=== PATIENT | female | born 1975 | race Caucasian/White ===

== ENCOUNTER 2018-05-26 13:58 | Inpatient (IN) | payer SELFPAY ==
[2018-05-26 14:38] LABS: Urine Appearance Clear; Urine Blood Negative (Negative); Urine Color Yellow; Urine Ketones Negative (Negative); Urine Protein Negative (Negative); Urine Specific Gravity 1.013 (1.010-1.030); Urine Urobilinogen Negative (Negative)
[2018-05-26 14:40] LABS: ABS Basophils 0 10^3/ul (0-0.2); ABS Eosinophils 0.2 10^3/ul (0-0.6); ABS Lymphocytes 2.7 10^3/ul (1.0-4.8); ABS Monocytes 0.4 10^3/ul (0-0.8); ABS Neutrophils 4.7 10^3/ul (1.5-7.7); ABS Nucleated RBC 0 10^3/ul; Eosinophil % 2.1 % (0-6); Hematocrit 42 % (35-47); Hemoglobin 14.6 g/dl (12.0-16.0); Lymphocyte % 33.7 % (25-47); Mean Corpuscular HGB Conc 35 g/dl (31-36); Mean Corpuscular Hemoglobin 33 pg (27-31); Mean Corpuscular Volume 96 fL (80-97); Mean Platelet Volume 8.5 um3 (7.4-10.4); Nucleated Red Blood Cells % 0.1; Platelet Count 277 10^3/ul (150-450); Red Blood Count 4.37 10^6/ul (4.00-5.40); Red Cell Distribution Width 13 % (10.5-15)
[2018-05-26 15:00] LABS: EGFR Non-African American 90.9 (>60)
[2018-05-26] MEDS ORDERED: oxyCODONE SR TAB(*) 15 MG TAB.SR PO ONE ×2 (17:01→22:54)
[2018-05-26] MEDS ORDERED: Carisoprodol TAB* 350 MG PO ONE ×2 (17:01→22:53)
[2018-05-26] MEDS ORDERED: Nicotine Inhaler* 10 MG AMP INH ONE (17:03)
[2018-05-26] MEDS ORDERED: Mouth Piece, Nicotine* 1 EACH CARTRIDGE INH PRN (17:03)
[2018-05-26] MEDS ORDERED: Morphine TAB (NF) 15 MG TAB PO ONE (17:05)
[2018-05-26] MEDS ORDERED: Mouth Piece, Nicotine* 1 EACH CARTRIDGE ONE (17:08)
[2018-05-26] MEDS ORDERED: Morphine ORAL.SOLN 10 mg* 2 MG/ML UDC 5 ml PO ONE (18:00)
[2018-05-26] MEDS ORDERED: clonazePAM TAB(*) 1 MG PO ONE (21:00)
--- NOTE | 2018-05-26 21:24 | ED ---
Terry Hunter Angela, scribed for Derrick Vidal MD on 05/26/18 at 1425 . Psychiatric Complaint - HPI Summary HPI Summary: This pt is a 42 y/o female, accompanied by friend, presenting to [facility] c/o increased depression and anxiety for the past 1 month. Pt reports she has not been feeling herself at all and has "not been functioning." She states that 1 month ago she left work and never went back again. Pt was a nurse at [employer]. She states she stays in her bed and watches Netflix. Pt notes she does not sleep , eat, or shower. Denies chest pain, SOB, abd pain. She notes she is currently anxious. Per friend, "she has passive suicidal ideations." Pt denies SI or HI. Pt did not reach out sooner for help because she was embarrassed. She states "I don't know what is wrong with me." Pt notes she has never had a problem like this before. LMP: 2 weeks ago. Pt admits to tobacco use but denies alcohol use. PMHx includes fibromyalgia, herniated disc, depression and anxiety (for years). She started Neurontin 3 months ago. Pt is currently on Klonopin. - History Of Current Complaint Chief Complaint: EDMentalHealth Hx Obtained From: Patient Hx Last Menstrual Period: 03/05/15 Onset/Duration: Lasting Weeks, Still Present Timing: Weeks Severity Currently: Severe Character: Depressed, Anxious Aggravating Factor(s): Nothing Alleviating Factor(s): Nothing Associated Signs And Symptoms: Positive: Sleep Disturbance, Appetite Change, Social Withdrawal, Social Isolation Has Suicidal: Reports: Demonstrates Gesture - per friend. Denies: Thoughts, With A Plan Has Homicidal: Denies: Thoughts, With A Plan - Allergies/Home Medications Allergies/Adverse Reactions: Allergies Allergy/AdvReac Type Severity Reaction Status Date / Time Sulfa (Sulfonamide AdvReac GI Upset Verified 05/26/18 15:38 Antibiotics) tramadol AdvReac GI Upset Verified 05/26/18 15:38 Home Medications: Home Medications Amphetamine MIXED SALT TAB* [Adderall TAB*] 10 mg PO DAILY PRN 05/26/18 [ History Confirmed 05/26/18] Carisoprodol TAB* [Soma TAB*] 350 mg PO QID 05/26/18 [History Confirmed ] Cholecalciferol TAB* [Vitamin D TAB*] 1,000 unit PO DAILY 05/26/18 [History Confirmed 05/26/18] FLUoxetine CAP* [PROzac CAP*] 20 mg PO DAILY 05/26/18 [History Confirmed ] Gabapentin CAP(*) [Neurontin 300 CAP(*)] 300 mg PO BID 05/26/18 [History Confirmed 05/26/18] Morphine Sulfate [Morphine Sulfate ER] 15 mg PO BID 05/26/18 [History Confirmed 05/26/18] Oxycodone HCl [Oxycodone HCl ER 30 mg] 30 mg PO TID 05/26/18 [History Confirmed 05/26/18] Sertraline* [Zoloft*] 100 mg PO DAILY 05/26/18 [History Confirmed 05/26/18] clonazePAM TAB(*) [KlonoPIN TAB(*)] 1 mg PO DAILY 05/26/18 [History Confirmed ] PMH/Surg Hx/FS Hx/Imm Hx Endocrine/Hematology History: Denies: Hx Diabetes, Hx Thyroid Disease, Hx Anemia Cardiovascular History: Reports: Other Cardiovascular Problems/Disorders - tachycardic at night, with sweats Denies: Hx Hypertension, Hx Pacemaker/ICD Respiratory History: Denies: Hx Asthma, Hx Chronic Obstructive Pulmonary Disease (COPD) GI History: Reports: Hx Diverticulosis, Hx Gall Bladder Disease, Other GI Disorders - N/V/DIARHEA Denies: Hx Cirrhosis, Hx Jaundice, Hx Ulcer History: Reports: Hx Kidney Infection, Hx Kidney Stones - LEFT SIDED, Other Problems/Disorders - UTI ? Denies: Hx Dialysis Musculoskeletal History: Reports: Hx Arthritis - BACK, Hx Back Problems, Hx Fibromyalgia, Other Musculoskeletal History - DDD in back Sensory History: Denies: Hx Contacts or Glasses, Hx Hearing Aid Opthamlomology History: Denies: Hx Contacts or Glasses Neurological History: Reports: Hx Migraine - 1 PER WEEK- WITH N/V - TREATS WITH TYLENOL Denies: Hx Headaches, Other Neuro Impairments/Disorders Psychiatric History: Reports: Hx Anxiety, Hx Depression, Hx Panic Disorder Denies: Hx Suicide Attempt, Other Psychiatric Issues/Disorders - Surgical History Surgery Procedure, Year, and Place: TUBES IN EARS 1976,SPIDER BITE L LEG 2002; lithotripsy 2013; tonsils and adenoids Hx Anesthesia Reactions: No - Immunization History Date of Tetanus Vaccine: UP TO DATE Date of Influenza Vaccine: NONE Infectious Disease History: Yes Infectious Disease History: Reports: Hx Clostridium Difficile, Hx of Known/ Suspected MRSA Denies: Hx Hepatitis, Hx Human Immunodeficiency Virus (HIV), History Other Infectious Disease, Traveled Outside the [place] in Last 30 Days - Family History Known Family History: Positive: Other - brain aneurysm Family History: FHx of mental health. No FHx of suicides. - Social History Alcohol Use: Rare Substance Use Type: Reports: None Substance Use Comment - Amount & Last Used: morphine 30mg bid, oxycodone 30mg qid. Smoking Status (MU): Light Every Day Tobacco Smoker Type: Cigarettes Amount Used/How Often: 1 ppd Length of Time of Smoking/Using Tobacco: 27 Have You Smoked in the Last Year: Yes Review of Systems Negative: Fever, Chills ENT: Negative Negative: Chest Pain Negative: Shortness Of Breath Negative: Abdominal Pain Psychological: Other - SI per friend Positive: Anxious, Depressed All Other Systems Reviewed And Are Negative: Yes Physical Exam - Summary Physical Exam Summary: Appearance: Well appearing, no pain distress Skin: warm, dry, reflects adequate perfusion Head/face: normal Eyes: EOMI, [place] ENT: normal Neck: supple, non-tender Respiratory: CTA, breath sounds present Cardiovascular: RRR, pulses symmetrical Abdomen: non-tender, soft Bowel: present Musculoskeletal: normal, strength/ROM intact Neuro: normal, sensory motor intact, A&Ox3 Triage Information Reviewed: Yes Vital Signs On Initial Exam: Initial Vitals Temp Pulse Resp BP Pulse Ox 98.3 F 92 18 149/84 97 05/26/18 14:00 05/26/18 14:00 05/26/18 14:00 05/26/18 14:00 05/26/18 14:00 Vital Signs Reviewed: Yes Diagnostics - Vital Signs Vital Signs Temp Pulse Resp BP Pulse Ox 05/26/18 14:00 98.3 F 92 18 149/84 97 - Laboratory Lab Results: Lab Results 05/26/18 05/26/18 05/26/18 Range/Units 14:23 14:23 14:29 WBC 8.0 (3.5-10.8) 10^3/ul RBC 4.37 (4.00-5.40) 10^6/ul Hgb 14.6 (12.0-16.0) g/dl Hct 42 (35-47) % MCV 96 (80-97) fL MCH 33 H (27-31) pg MCHC 35 (31-36) g/dl RDW 13 (10.5-15) % Plt Count 277 (150-450) 10^3/ul MPV 8.5 (7.4-10.4) um3 Neut % (Auto) 58.8 (38-83) % Lymph % (Auto) 33.7 (25-47) % [place] % (Auto) 5.0 (0-7) % Eos % (Auto) 2.1 (0-6) % Baso % (Auto) 0.4 (0-2) % Absolute Neuts (auto) 4.7 (1.5-7.7) 10^3/ul Absolute Lymphs (auto) 2.7 (1.0-4.8) 10^3/ul Absolute Monos (auto) 0.4 (0-0.8) 10^3/ul Absolute Eos (auto) 0.2 (0-0.6) 10^3/ul Absolute Basos (auto) 0 (0-0.2) 10^3/ul Absolute Nucleated RBC 0 10^3/ul Nucleated RBC % 0.1 Sodium (135-145) mmol/L Potassium (3.5-5.0) mmol/L Chloride (101-111) mmol/L Carbon Dioxide (22-32) mmol/L Anion Gap (2-11) mmol/L BUN (6-24) mg/dL Creatinine (0.51-0.95) mg/dL Est GFR ( Amer) (>60) Est GFR (Non-Af Amer) (>60) BUN/Creatinine Ratio (8-20) Glucose (70-100) mg/dL Calcium (8.6-10.3) mg/dL Total Bilirubin (0.2-1.0) mg/dL AST (13-39) U/L ALT (7-52) U/L Alkaline Phosphatase (34-104) U/L Total Creatine Kinase (10-223) U/L Total Protein (6.4-8.9) g/dL Albumin (3.2-5.2) g/dL Globulin (2-4) g/dL Albumin/Globulin Ratio (1-3) TSH (0.34-5.60) mcIU/mL Beta HCG, Quant mIU/mL Urine Color Yellow Urine Appearance Clear Urine pH 6.0 (5-9) Ur Specific [place] 1.013 (1.010-1.030) Urine Protein Negative (Negative) Urine Ketones Negative (Negative) Urine Blood Negative (Negative) Urine Nitrate Negative (Negative) Urine Bilirubin Negative (Negative) Urine Urobilinogen Negative (Negative) Ur Leukocyte Esterase Negative (Negative) Urine Glucose Negative (Negative) Salicylates (<30) mg/dL Urine Opiates Screen Presumptive positive A (None Detect) Acetaminophen mcg/mL Ur Barbiturates Screen None detected (None Detect) Ur Phencyclidine Scrn None detected (None Detect) Ur Amphetamines Screen None detected (None Detect) U Benzodiazepines Scrn None detected (None Detect) Urine Cocaine Screen None detected (None Detect) U Cannabinoids Screen None detected (None Detect) Serum Alcohol (<10) mg/dL 05/26/18 Range/Units 14:29 WBC (3.5-10.8) 10^3/ul RBC (4.00-5.40) 10^6/ul Hgb (12.0-16.0) g/dl Hct (35-47) % MCV (80-97) fL MCH (27-31) pg MCHC (31-36) g/dl RDW (10.5-15) % Plt Count (150-450) 10^3/ul MPV (7.4-10.4) um3 Neut % (Auto) (38-83) % Lymph % (Auto) (25-47) % [place] % (Auto) (0-7) % Eos % (Auto) (0-6) % Baso % (Auto) (0-2) % Absolute Neuts (auto) (1.5-7.7) 10^3/ul Absolute Lymphs (auto) (1.0-4.8) 10^3/ul Absolute Monos (auto) (0-0.8) 10^3/ul Absolute Eos (auto) (0-0.6) 10^3/ul Absolute Basos (auto) (0-0.2) 10^3/ul Absolute Nucleated RBC 10^3/ul Nucleated RBC % Sodium 138 (135-145) mmol/L Potassium 3.7 (3.5-5.0) mmol/L Chloride 105 (101-111) mmol/L Carbon Dioxide 24 (22-32) mmol/L Anion Gap 9 (2-11) mmol/L BUN 10 (6-24) mg/dL Creatinine 0.70 (0.51-0.95) mg/dL Est GFR ( Amer) 110.0 (>60) Est GFR (Non-Af Amer) 90.9 (>60) BUN/Creatinine Ratio 14.3 (8-20) Glucose 94 (70-100) mg/dL Calcium 9.2 (8.6-10.3) mg/dL Total Bilirubin 0.30 (0.2-1.0) mg/dL AST 13 (13-39) U/L ALT 13 (7-52) U/L Alkaline Phosphatase 51 (34-104) U/L Total Creatine Kinase 33 (10-223) U/L Total Protein 7.1 (6.4-8.9) g/dL Albumin 4.3 (3.2-5.2) g/dL Globulin 2.8 (2-4) g/dL Albumin/Globulin Ratio 1.5 (1-3) TSH 1.81 (0.34-5.60) mcIU/mL Beta HCG, Quant < 0.60 mIU/mL Urine Color Urine Appearance Urine pH (5-9) Ur Specific [place] (1.010-1.030) Urine Protein (Negative) Urine Ketones (Negative) Urine Blood (Negative) Urine Nitrate (Negative) Urine Bilirubin (Negative) Urine Urobilinogen (Negative) Ur Leukocyte Esterase (Negative) Urine Glucose (Negative) Salicylates < 2.50 (<30) mg/dL Urine Opiates Screen (None Detect) Acetaminophen < 15 mcg/mL Ur Barbiturates Screen (None Detect) Ur Phencyclidine Scrn (None Detect) Ur Amphetamines Screen (None Detect) U Benzodiazepines Scrn (None Detect) Urine Cocaine Screen (None Detect) U Cannabinoids Screen (None Detect) Serum Alcohol < 10 (<10) mg/dL Result Diagrams: 05/26/18 14:29 05/26/18 14:29 Lab Statement: Any lab studies that have been ordered have been reviewed, and results considered in the medical decision making process. - EKG 14:24 Cardiac Rate: NL - at 74 bpm EKG Rhythm: Sinus Rhythm ST Segment: Normal EKG Interpretation: Normal axis and intervals. Course/Dx - Course Course Of Treatment: Patient medically cleared following laboratories, EKG. She was taken to the flex unit and evaluated by the crisis mental health evaluators. She'll be signed out to the oncoming physician pending disposition per mental health. - Differential Dx/Clinical Impression Differential Diagnosis/HQI/PQRI: Positive: Anxiety Provider Diagnosis: Depression, fibromyalgia Discharge - Sign-Out/Discharge Documenting (check all that apply): Sign-Out Patient Signing out patient TO: Balaji White - pending dispo, awaiting MHE. - Discharge Plan Condition: Stable Referrals: Alondra Araiza MD [Primary Care Provider] - - Billing Disposition and Condition Condition: STABLE The documentation as recorded by the Terry delgado Angela accurately reflects the service I personally performed and the decisions made by , Derrick Vidal MD.
[2018-05-26] MEDS ORDERED: oxyCODONE SR TAB(*) 10 MG TAB.SR PO ONE (23:00)
[2018-05-27] MEDS: Nicotine Inhaler* 10 MG AMP INH PRN ×3 (00:18→21:30)
--- NOTE | 2018-05-27 06:05 | ED ---
IRcihie Tiffany, scribed for Balaji White MD on 05/27/18 at 0106 . Progress - Progress Note Progress Note: This patient is signed out from Dr. Vidal, awaiting MHE, pending dispo. - Consult/PCP Time Called: 00:00 Course/Dx - Course Course Of Treatment: 42 y/o F signed out from Dr. Vidal, awaiting MHE, pending dispo. [facility] mental health open tenter operator spoke with Dr. Phillips, psychiatry. Patient will be admitted to [facility]. - Diagnoses Provider Diagnoses: Depression Discharge - Sign-Out/Discharge Documenting (check all that apply): Discharge/Admit/Transfer - Admit - Discharge Plan Condition: Stable Disposition: [facility] Referrals: Alondra Araiza MD [Primary Care Provider] - The documentation as recorded by the Richie delgado Tiffany accurately reflects the service I personally performed and the decisions made by , Balaji White MD.
[2018-05-27] MEDS ORDERED: Acetaminophen TAB* 325 MG PO PRN (06:50)
[2018-05-27] MEDS ORDERED: Al Hydrox/Mg Hydrox/Simet LIQ* 30 ML UDC PO PRN (06:50)
[2018-05-27] MEDS ORDERED: Gabapentin CAP(*) 300 MG PO SCH (09:00)
[2018-05-27] MEDS: Vitamin THERAPEUTIC TAB PO SCH (09:10)
[2018-05-27] MEDS: Morphine TAB Extended Release (*) 15 MG TAB.ER PO SCH ×2 (09:10→21:26)
[2018-05-27] MEDS: Carisoprodol TAB* 350 MG PO SCH ×4 (09:11→21:25)
[2018-05-27] MEDS: oxyCODONE SR TAB(*) 10 MG TAB.SR PO SCH ×3 (09:12→21:26)
[2018-05-27] MEDS ORDERED: Mouth Piece, Nicotine* 1 EACH CARTRIDGE INH ONE (10:00)
[2018-05-27] MEDS: Gabapentin CAP(*) 300 MG PO SCH ×2 (13:54→21:26)
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
[2018-05-27] MEDS ORDERED: traZODone TAB* 50 MG TAB PO SCH (21:00)
[2018-05-27] MEDS: traZODone TAB* 100 MG PO SCH (21:25)
[2018-05-27] MEDS: Melatonin 3 MG TAB PO SCH (21:25)
[2018-05-27] MEDS: ARIPiprazole TAB* 5 MG PO SCH (21:26)
[2018-05-27] MEDS: Nicotine Patch Removal NOTE PATCH OFF SCH (21:27)
[2018-05-28] MEDS: Nicotine Inhaler* 10 MG AMP INH PRN ×3 (08:59→18:48)
[2018-05-28] MEDS: Nicotine PATCH 21 MG/24 HR* PATCH TRANSDERM SCH (08:59)
[2018-05-28] MEDS: Gabapentin CAP(*) 300 MG PO SCH ×3 (09:00→20:30)
[2018-05-28] MEDS: oxyCODONE SR TAB(*) 10 MG TAB.SR PO SCH ×3 (09:01→20:31)
[2018-05-28] MEDS: Vitamin THERAPEUTIC TAB PO SCH (09:01)
[2018-05-28] MEDS: Carisoprodol TAB* 350 MG PO SCH ×4 (09:02→20:31)
[2018-05-28] MEDS: Morphine TAB Extended Release (*) 15 MG TAB.ER PO SCH ×2 (09:02→20:31)
--- NOTE | 2018-05-28 14:49 | PN ---
Subjective - Subjective Date of Service: 05/28/18 Service Type: [id number] Hosp care 15 min low complexity Subjective: Patient slept intermittently last night and attributes this to the environment. She reports feeling angry that she may have untreated bipolar disorder for so long. Medical Insurance Claims Specialist encourages focusing on symptoms rather than diagnoses. Patient states mood is "better." She states her son brought some toiletries here but otherwise she has not heard from family. Patient requests that she continue on antidepressant. She reports continued depressed mood, irritability and feeling anxious. She declines offer of pain specialist consult. Objective - Appearance Appearance: Well Developed/Nourished Dysmorphic Features: Yes Hygiene: Normal Grooming: Well Kept - Behavior Psychomotor Activities: Normal Exhibits Abnormal Movement: No - Attitude and Relatedness Attitude and Relatedness: Cooperative Eye Contact: Good - Speech Quality: Unpressured Latencies: Normal Quantity: Appropriate - Mood Patient's Decription of Mood: "better" - Affect Observed Affect: Depressed Affect Consistent with: Dysphoria - Thought Process Patient's Thought Process: Circumstantial, Over Inclusive Thought Content: Yes Passive Wish, No Suicidal Planning, No Homicidal Ideation, No Paranoid Ideation - Sensorium Experiencing Hallucinations: No, Sensorium is Clear Type of Hallucinations: Visual: No, Auditory: No, Command: No - Level of Consciousness Level of Consciousness: Alert Orientation: Yes Intact, Yes Orientated to Time, Yes Orientated to Place, Yes Orientated to Person - Impulse Control Impulse Control: Intact - Insight and Judgement Insight and Judgement: Poor - Group Participation Particating in Group Activities: Yes - Medication Management Medication Management Adherence: Yes Assessment - Assessment Merits Inpatient Hospitalization: For Immediate Safety, For Stabilization, To Initiate Treatment, For Discharge Planning Inpatient DSM-V Dx: F33.1 Clinical Impression: 42yo white female, domiciled, employed who presented to ED with c/o debilitating depression and passive wish. 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 She is tolerating medication adjustments and taper of benzodiazepine. She merits hospitalization for immediate safety and stabilization. Plan - Plan Treatment Plan: Name: TENNILLE COLLINS Birthdate: 1975 [id number] continue acute intensive psychiatric treatment. may decrease to q30min observation and allow staff pass. add sertraline 50mg po and nicotine gum per pt request. continue other medications as prescribed. discharge planning to include family and outpatient referrals. Continued Medication Management: Start Medication Medications: Current Medications Acetaminophen (Tylenol Tab*) 650 mg PO Q4H PRN PRN Reason: PAIN or TEMP > 101 F Al Hydrox/Mg Hydrox/Simethicone (Maalox Plus*) 30 ml PO Q4H PRN PRN Reason: INDIGESTION Aripiprazole (Abilify Tab*) 5 mg PO BEDTIME [facility] Last Admin: 05/27/18 21:26 Dose: 5 mg Carisoprodol (Soma Tab*) 350 mg PO QID [facility] Last Admin: 05/28/18 13:40 Dose: 350 mg Clonazepam (Klonopin Tab(*)) 0.5 mg PO BEDTIME PRN PRN Reason: ANXIETY Device (Nicotine Mouth Piece*) 1 each INH .USE WITH NICOTROL PRN PRN Reason: CRAVING Last Admin: 05/26/18 17:14 Dose: 1 each Gabapentin (Neurontin Cap(*)) 300 mg PO TID [facility] Last Admin: 05/28/18 13:39 Dose: 300 mg Melatonin (Melatonin) 3 mg PO BEDTIME [facility]; Protocol Last Admin: 05/27/18 21:25 Dose: 3 mg Morphine Sulfate (Ms Contin(*)) 15 mg PO BID [facility] Last Admin: 05/28/18 09:02 Dose: 15 mg Multivitamins (Theragran Tab*) 1 tab PO DAILY [facility] Last Admin: 05/28/18 09:01 Dose: 1 tab Nicotine (Nicotine Inhaler*) 10 mg INH Q2H PRN PRN Reason: CRAVING Nicotine (Nicotine Patch 21 Mg/24 Hr*) 1 patch TRANSDERM DAILY@0800 [facility] Last Admin: 05/28/18 08:59 Dose: 1 patch Oxycodone HCl (Oxycontin(*)) 30 mg PO TID [facility] Last Admin: 05/28/18 13:40 Dose: 30 mg Pharmacy Profile Note (Nicotine Patch Removal Note*) 1 note PATCH OFF 2100 [facility] Last Admin: 05/27/18 21:27 Dose: Not Given Trazodone HCl (Desyrel Tab*) 100 mg PO BEDTIME [facility] Last Admin: 05/27/18 21:25 Dose: 100 mg - Discharge Plan Discharge Plan: Outpatient Follow Up Outpatient Program: [facility]
[2018-05-28] MEDS: Nicotine GUM* 2 MG PO PRN ×2 (17:40→22:43)
[2018-05-28] MEDS: Melatonin 3 MG TAB PO SCH (20:31)
[2018-05-28] MEDS: Sertraline* 50 MG TAB PO SCH (20:31)
[2018-05-28] MEDS: traZODone TAB* 100 MG PO SCH (20:31)
[2018-05-28] MEDS: ARIPiprazole TAB* 5 MG PO SCH (20:31)
[2018-05-28] MEDS: Nicotine Patch Removal NOTE PATCH OFF SCH (20:32)
[2018-05-28] MEDS: clonazePAM TAB(*) 0.5 MG PO PRN (22:43)
[2018-05-29] MEDS: Nicotine PATCH 21 MG/24 HR* PATCH TRANSDERM SCH (09:20)
[2018-05-29] MEDS: Gabapentin CAP(*) 300 MG PO SCH ×3 (09:21→20:49)
[2018-05-29] MEDS: Vitamin THERAPEUTIC TAB PO SCH (09:22)
[2018-05-29] MEDS: oxyCODONE SR TAB(*) 10 MG TAB.SR PO SCH ×3 (09:22→20:52)
[2018-05-29] MEDS: Carisoprodol TAB* 350 MG PO SCH ×4 (09:23→20:48)
[2018-05-29] MEDS: Morphine TAB Extended Release (*) 15 MG TAB.ER PO SCH ×2 (09:23→20:51)
[2018-05-29] MEDS: Nicotine GUM* 2 MG PO PRN ×4 (09:24→21:51)
--- NOTE | 2018-05-29 09:56 | PN ---
Subjective - Subjective Date of Service: 05/29/18 Service Type: [id number] Hosp care 15 min low complexity Subjective: Patient reports feeling irritable and has complaints about environment of unit. She is receptive to therapeutic suggestions. She reports difficulty initiating sleep and tried to do so without clonazepam to no avail. She states she typically takes medications later at home. Blood Bank Order Control Clerk discussed sleep hygiene tips. Patient states she is not ready to discharge. Objective - Appearance Appearance: Well Developed/Nourished Dysmorphic Features: Yes Hygiene: Normal Grooming: Well Kept - Behavior Psychomotor Activities: Normal Exhibits Abnormal Movement: No - Attitude and Relatedness Attitude and Relatedness: Needy Eye Contact: Good - Speech Quality: Unpressured Latencies: Normal Quantity: Appropriate - Mood Patient's Decription of Mood: "Irritable" - Affect Observed Affect: Good Affect Consistent with: Euthymia - Thought Process Patient's Thought Process: Coherent, Goal Directed, Circumstantial Thought Content: Yes Passive Wish, No Suicidal Planning, No Homicidal Ideation, No Paranoid Ideation - Sensorium Experiencing Hallucinations: No, Sensorium is Clear Type of Hallucinations: Visual: No, Auditory: No, Command: No - Level of Consciousness Level of Consciousness: Alert Orientation: Yes Intact, Yes Orientated to Time, Yes Orientated to Place, Yes Orientated to Person - Impulse Control Impulse Control: Intact - Insight and Judgement Insight and Judgement: Fair - Group Participation Particating in Group Activities: Yes - Medication Management Medication Management Adherence: Yes Assessment - Assessment Merits Inpatient Hospitalization: For Immediate Safety, For Stabilization, Consolidate Improvements, For Discharge Planning Inpatient DSM-V Dx: F33.1 Clinical Impression: 42yo white female, domiciled, employed who presented to ED with c/o debilitating depression and passive wish. 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 She is tolerating medication adjustments and taper of benzodiazepine. She merits hospitalization for immediate safety and stabilization. Plan - Plan Treatment Plan: Name: TENNILLE COLLINS Birthdate: 1975 [id number] continue acute intensive psychiatric treatment. may decrease to q30min observation and allow staff pass. increase aripiprazole. continue other medications as prescribed. discharge planning to include family and outpatient referrals. Continued Medication Management: Different Medication Medications: Current Medications Acetaminophen (Tylenol Tab*) 650 mg PO Q4H PRN PRN Reason: PAIN or TEMP > 101 F Al Hydrox/Mg Hydrox/Simethicone (Maalox Plus*) 30 ml PO Q4H PRN PRN Reason: INDIGESTION Aripiprazole (Abilify Tab*) 7 mg PO BEDTIME [facility] Carisoprodol (Soma Tab*) 350 mg PO QID [facility] Last Admin: 05/29/18 09:23 Dose: 350 mg Clonazepam (Klonopin Tab(*)) 0.5 mg PO BEDTIME PRN PRN Reason: ANXIETY Last Admin: 05/28/18 22:43 Dose: 0.5 mg Device (Nicotine Mouth Piece*) 1 each INH .USE WITH NICOTROL PRN PRN Reason: CRAVING Last Admin: 05/26/18 17:14 Dose: 1 each Gabapentin (Neurontin Cap(*)) 300 mg PO TID [facility] Last Admin: 05/29/18 09:21 Dose: 300 mg Melatonin (Melatonin) 3 mg PO BEDTIME [facility]; Protocol Last Admin: 05/28/18 20:31 Dose: 3 mg Morphine Sulfate (Ms Contin(*)) 15 mg PO BID [facility] Last Admin: 05/29/18 09:23 Dose: 15 mg Multivitamins (Theragran Tab*) 1 tab PO DAILY [facility] Last Admin: 05/29/18 09:22 Dose: 1 tab Nicotine (Nicotine Inhaler*) 10 mg INH Q2H PRN PRN Reason: CRAVING Last Admin: 05/28/18 18:48 Dose: 10 mg Nicotine (Nicotine Patch 21 Mg/24 Hr*) 1 patch TRANSDERM DAILY@0800 [facility] Last Admin: 05/29/18 09:20 Dose: 1 patch Nicotine Polacrilex (Nicotine Gum*) 2 mg PO Q2H PRN PRN Reason: CRAVING Last Admin: 05/29/18 09:24 Dose: 2 mg Oxycodone HCl (Oxycontin(*)) 30 mg PO TID [facility] Last Admin: 05/29/18 09:22 Dose: 30 mg Pharmacy Profile Note (Nicotine Patch Removal Note*) 1 note PATCH OFF 2100 [facility] Last Admin: 05/28/18 20:32 Dose: 1 note Sertraline HCl (Zoloft*) 50 mg PO BEDTIME [facility] Last Admin: 05/28/18 20:31 Dose: 50 mg Trazodone HCl (Desyrel Tab*) 100 mg PO 2200 [facility] - Discharge Plan Discharge Plan: Outpatient Follow Up Outpatient Program: [facility]
--- NOTE | 2018-05-29 10:03 | PN ---
[facility]: Group Therapy Note - Service Type Service Type: [id number] Group Psychotherapy - late entry for 05/28/18: Medication Education Group: Patient attended group and presented with flat affect that did not vary with discussion. Although responsive to direct prompts to respond to questions, patient did not engage in spontaneous conversation.
[2018-05-29] MEDS ORDERED: Magnesium Hydroxide LIQ* 30 ML UDC PO ONE (16:00)
[2018-05-29] MEDS: Polyethylene Glycol 3350* 17 GM PACKET PO SCH ×2 (17:40→18:12)
[2018-05-29] MEDS: Nicotine Inhaler* 10 MG AMP INH PRN (18:15)
[2018-05-29] MEDS: ARIPiprazole TAB* 2 MG PO SCH (20:47)
[2018-05-29] MEDS: ARIPiprazole TAB* 5 MG PO SCH (20:47)
[2018-05-29] MEDS: Melatonin 3 MG TAB PO SCH (20:50)
[2018-05-29] MEDS: traZODone TAB* 100 MG PO SCH (20:53)
[2018-05-29] MEDS: Sertraline* 50 MG TAB PO SCH (20:53)
[2018-05-29] MEDS: Nicotine Patch Removal NOTE PATCH OFF SCH (20:54)
[2018-05-29] MEDS: clonazePAM TAB(*) 0.5 MG PO PRN (21:50)
[2018-05-30] MEDS: Nicotine GUM* 2 MG PO PRN ×4 (07:21→20:58)
[2018-05-30] MEDS: Nicotine PATCH 21 MG/24 HR* PATCH TRANSDERM SCH (07:21)
[2018-05-30] MEDS: oxyCODONE SR TAB(*) 10 MG TAB.SR PO SCH ×3 (09:19→20:57)
[2018-05-30] MEDS: Morphine TAB Extended Release (*) 15 MG TAB.ER PO SCH ×2 (09:20→20:56)
[2018-05-30] MEDS: Gabapentin CAP(*) 300 MG PO SCH ×3 (09:20→20:55)
[2018-05-30] MEDS: Polyethylene Glycol 3350* 17 GM PACKET PO SCH (09:21)
[2018-05-30] MEDS: Vitamin THERAPEUTIC TAB PO SCH (09:21)
[2018-05-30] MEDS: Carisoprodol TAB* 350 MG PO SCH ×4 (09:21→20:54)
--- NOTE | 2018-05-30 12:04 | PN ---
Subjective - Subjective Date of Service: 05/30/18 Service Type: [id number] Hosp care 15 min low complexity Subjective: Tennille is seen in weekend coverage for NPP Grace Alan. The patient is anxious and informs me that she is uncomfortable with the idea of being discharged on Friday (06/01). "I've had all these changes to my meds. They took me off Adderall, lowered my Klonopin, put me back on Zoloft and started me on Abilify. My head is spinning and I don't know which change is doing it." The patient has been active on the milieu per staff and she is playing a Bionym game with peers and staff when I approach her. She is denying SI. Objective - Appearance Appearance: Well Developed/Nourished Dysmorphic Features: No Hygiene: Normal Grooming: Well Kept - Behavior Psychomotor Activities: Normal Exhibits Abnormal Movement: No - Attitude and Relatedness Attitude and Relatedness: Cooperative Eye Contact: Fair - Speech Quality: Unpressured Latencies: Normal Quantity: Appropriate - Mood Patient's Decription of Mood: "Anxious" - Affect Observed Affect: Constricted Affect Consistent with: Dysphoria - Thought Process Patient's Thought Process: Coherent Thought Content: No Passive Wish, No Suicidal Planning, No Homicidal Ideation, No Paranoid Ideation - Sensorium Experiencing Hallucinations: No, Sensorium is Clear Type of Hallucinations: Visual: No, Auditory: No, Command: No - Level of Consciousness Level of Consciousness: Alert Orientation: Yes Intact, Yes Orientated to Time, Yes Orientated to Place, Yes Orientated to Person - Impulse Control Impulse Control: Tenuous - Insight and Judgement Insight and Judgement: Fair - Group Participation Particating in Group Activities: Yes - Medication Management Medication Management Adherence: Yes Assessment - Assessment Merits Inpatient Hospitalization: For Immediate Safety, For Stabilization Inpatient DSM-V Dx: F33.1 Clinical Impression: 42 y.o. single, white female with a history of anxiety and depression presenting with decreased mood, amotivation and passive wish. Plan - Plan Treatment Plan: Name: TENNILLE COLLINS Birthdate: 1975 [id number] The patient is on the following psychiatric regimen: aripiprazole 7mg PO qhs, clonazepam 0.5mg PO qhs, gabapentin 300mg PO TID, melatonin 3mg PO qhs, sertraline 50mg PO qday and trazodone 100mg PO qhs. She remains anxious, although her passive suicidality has resolved. Continue to treat on the inpatient unit. Continued Medication Management: Different Medication Medications: Current Medications Acetaminophen (Tylenol Tab*) 650 mg PO Q4H PRN PRN Reason: PAIN or TEMP > 101 F Al Hydrox/Mg Hydrox/Simethicone (Maalox Plus*) 30 ml PO Q4H PRN PRN Reason: INDIGESTION Aripiprazole (Abilify Tab*) 5 mg PO BEDTIME [facility] Last Admin: 05/29/18 20:47 Dose: 5 mg Aripiprazole (Abilify Tab*) 2 mg PO BEDTIME [facility] Last Admin: 05/29/18 20:47 Dose: 2 mg Carisoprodol (Soma Tab*) 350 mg PO QID [facility] Last Admin: 05/30/18 09:21 Dose: 350 mg Clonazepam (Klonopin Tab(*)) 0.5 mg PO BEDTIME PRN PRN Reason: ANXIETY Last Admin: 05/29/18 21:50 Dose: 0.5 mg Device (Nicotine Mouth Piece*) 1 each INH .USE WITH NICOTROL PRN PRN Reason: CRAVING Last Admin: 05/26/18 17:14 Dose: 1 each Gabapentin (Neurontin Cap(*)) 300 mg PO TID [facility] Last Admin: 05/30/18 09:20 Dose: 300 mg Melatonin (Melatonin) 3 mg PO BEDTIME [facility]; Protocol Last Admin: 05/29/18 20:50 Dose: 3 mg Morphine Sulfate (Ms Contin(*)) 15 mg PO BID [facility] Last Admin: 05/30/18 09:20 Dose: 15 mg Multivitamins (Theragran Tab*) 1 tab PO DAILY [facility] Last Admin: 05/30/18 09:21 Dose: 1 tab Nicotine (Nicotine Inhaler*) 10 mg INH Q2H PRN PRN Reason: CRAVING Last Admin: 05/29/18 18:15 Dose: 10 mg Nicotine (Nicotine Patch 21 Mg/24 Hr*) 1 patch TRANSDERM DAILY@0800 [facility] Last Admin: 05/30/18 07:21 Dose: 1 patch Nicotine Polacrilex (Nicotine Gum*) 2 mg PO Q2H PRN PRN Reason: CRAVING Last Admin: 05/30/18 07:21 Dose: 2 mg Oxycodone HCl (Oxycontin(*)) 30 mg PO TID [facility] Last Admin: 05/30/18 09:19 Dose: 30 mg Pharmacy Profile Note (Nicotine Patch Removal Note*) 1 note PATCH OFF 2100 [facility] Last Admin: 05/29/18 20:54 Dose: 1 note Polyethylene Glycol/Electrolytes (Miralax*) 17 gm PO DAILY [facility] Last Admin: 05/30/18 09:21 Dose: 17 gm Sertraline HCl (Zoloft*) 50 mg PO BEDTIME [facility] Last Admin: 05/29/18 20:53 Dose: 50 mg Trazodone HCl (Desyrel Tab*) 100 mg PO 2200 [facility] Last Admin: 05/29/18 20:53 Dose: 100 mg - Discharge Plan Discharge Plan: Inpatient Hospitalization
[2018-05-30] MEDS: Nicotine Inhaler* 10 MG AMP INH PRN (13:44)
[2018-05-30] MEDS: ARIPiprazole TAB* 5 MG PO SCH (20:55)
[2018-05-30] MEDS: Sertraline* 50 MG TAB PO SCH (20:55)
[2018-05-30] MEDS: Melatonin 3 MG TAB PO SCH (20:56)
[2018-05-30] MEDS: ARIPiprazole TAB* 2 MG PO SCH (20:56)
[2018-05-30] MEDS: Nicotine Patch Removal NOTE PATCH OFF SCH (20:57)
[2018-05-30] MEDS: clonazePAM TAB(*) 0.5 MG PO PRN (21:20)
[2018-05-31] MEDS: Gabapentin CAP(*) 300 MG PO SCH ×3 (08:07→20:23)
[2018-05-31] MEDS: oxyCODONE SR TAB(*) 10 MG TAB.SR PO SCH ×3 (08:08→20:24)
[2018-05-31] MEDS: Morphine TAB Extended Release (*) 15 MG TAB.ER PO SCH ×2 (08:08→20:24)
[2018-05-31] MEDS: Nicotine PATCH 21 MG/24 HR* PATCH TRANSDERM SCH (08:09)
[2018-05-31] MEDS: Vitamin THERAPEUTIC TAB PO SCH (08:09)
[2018-05-31] MEDS: Polyethylene Glycol 3350* 17 GM PACKET PO SCH (08:09)
[2018-05-31] MEDS: Carisoprodol TAB* 350 MG PO SCH ×4 (08:09→20:23)
[2018-05-31] MEDS: Nicotine GUM* 2 MG PO PRN ×3 (08:10→20:26)
[2018-05-31] MEDS: ARIPiprazole TAB* 2 MG PO SCH (20:22)
[2018-05-31] MEDS: ARIPiprazole TAB* 5 MG PO SCH (20:22)
[2018-05-31] MEDS: Melatonin 3 MG TAB PO SCH (20:24)
[2018-05-31] MEDS: Sertraline* 50 MG TAB PO SCH (20:24)
[2018-05-31] MEDS: traZODone TAB* 100 MG PO SCH ×2 (20:26)
[2018-05-31] MEDS: Nicotine Patch Removal NOTE PATCH OFF SCH (20:27)
[2018-05-31] MEDS: clonazePAM TAB(*) 0.5 MG PO PRN (22:03)
[2018-06-01] MEDS: Vitamin THERAPEUTIC TAB PO SCH (08:50)
[2018-06-01] MEDS: Morphine TAB Extended Release (*) 15 MG TAB.ER PO SCH ×2 (08:50→20:15)
[2018-06-01] MEDS: Carisoprodol TAB* 350 MG PO SCH ×4 (08:51→20:16)
[2018-06-01] MEDS: Gabapentin CAP(*) 300 MG PO SCH ×3 (08:51→20:14)
[2018-06-01] MEDS: oxyCODONE SR TAB(*) 10 MG TAB.SR PO SCH ×3 (08:52→20:16)
[2018-06-01] MEDS: Nicotine PATCH 21 MG/24 HR* PATCH TRANSDERM SCH (08:52)
[2018-06-01] MEDS: Nicotine GUM* 2 MG PO PRN ×3 (08:53→20:21)
[2018-06-01] MEDS: Polyethylene Glycol 3350* 17 GM PACKET PO SCH (10:50)
--- NOTE | 2018-06-01 15:55 | PN ---
Subjective - Subjective Date of Service: 06/01/18 Service Type: [id number] Hosp care 25 min moderate complexity Subjective: Tennille recalls some distressing memories from her childhood and discusses what sounds like a combination of burnout and PTSD. She is relieved and happy to be in the hospital and is safe at this point. She reports nightmares and stress. We add prazosin 2 mg at bedtime with discussion of side effects. Objective - Appearance Appearance: Healthy Appearing Dysmorphic Features: No Hygiene: Normal Grooming: Fairly Well Kept - Behavior Psychomotor Activities: Normal Exhibits Abnormal Movement: No - Attitude and Relatedness Attitude and Relatedness: Needy Eye Contact: Good - Speech Quality: Unpressured Latencies: Normal Quantity: Appropriate - Mood Patient's Decription of Mood: "Anxious" - Affect Observed Affect: Tearful Affect Consistent with: Dysphoria - Thought Process Patient's Thought Process: Coherent Thought Content: No Passive Wish, No Suicidal Planning, No Homicidal Ideation, No Paranoid Ideation - Sensorium Experiencing Hallucinations: No, Sensorium is Clear Type of Hallucinations: Visual: No, Auditory: No, Command: No - Level of Consciousness Level of Consciousness: Alert Orientation: Yes Intact, Yes Orientated to Time, Yes Orientated to Place, Yes Orientated to Person - Impulse Control Impulse Control: Tenuous - Insight and Judgement Insight and Judgement: Good - Group Participation Particating in Group Activities: Yes - Medication Management Medication Management Adherence: Yes - Additional Observations Comments: Well groomed and pleasant, Tennille appears anxious, frightened, and overwhelmed. She is safe on the unit and adherent to medication recommendations. Assessment - Assessment Merits Inpatient Hospitalization: For Immediate Safety Inpatient DSM-V Dx: F33.1 Clinical Impression: 42-year-old woman with a history of childhood trauma and current significant stress who has symptoms of PTSD. Plan - Plan Treatment Plan: Name: TENNILLE COLLINS Birthdate: 1975 [id number] Continued Medication Management: Different Medication Medications: Current Medications Acetaminophen (Tylenol Tab*) 650 mg PO Q4H PRN PRN Reason: PAIN or TEMP > 101 F Al Hydrox/Mg Hydrox/Simethicone (Maalox Plus*) 30 ml PO Q4H PRN PRN Reason: INDIGESTION Aripiprazole (Abilify Tab*) 5 mg PO BEDTIME [facility] Last Admin: 05/31/18 20:22 Dose: 5 mg Aripiprazole (Abilify Tab*) 2 mg PO BEDTIME [facility] Last Admin: 05/31/18 20:22 Dose: 2 mg Carisoprodol (Soma Tab*) 350 mg PO QID [facility] Last Admin: 06/01/18 13:24 Dose: 350 mg Clonazepam (Klonopin Tab(*)) 0.5 mg PO BEDTIME PRN PRN Reason: ANXIETY Last Admin: 05/31/18 22:03 Dose: 0.5 mg Device (Nicotine Mouth Piece*) 1 each INH .USE WITH NICOTROL PRN PRN Reason: CRAVING Last Admin: 05/26/18 17:14 Dose: 1 each Gabapentin (Neurontin Cap(*)) 300 mg PO TID [facility] Last Admin: 06/01/18 13:24 Dose: 300 mg Melatonin (Melatonin) 3 mg PO BEDTIME [facility]; Protocol Last Admin: 05/31/18 20:24 Dose: 3 mg Morphine Sulfate (Ms Contin(*)) 15 mg PO BID [facility] Last Admin: 06/01/18 08:50 Dose: 15 mg Multivitamins (Theragran Tab*) 1 tab PO DAILY [facility] Last Admin: 06/01/18 08:50 Dose: 1 tab Nicotine (Nicotine Inhaler*) 10 mg INH Q2H PRN PRN Reason: CRAVING Last Admin: 05/30/18 13:44 Dose: 10 mg Nicotine (Nicotine Patch 21 Mg/24 Hr*) 1 patch TRANSDERM DAILY@0800 [facility] Last Admin: 06/01/18 08:52 Dose: 1 patch Nicotine Polacrilex (Nicotine Gum*) 2 mg PO Q2H PRN PRN Reason: CRAVING Last Admin: 06/01/18 13:25 Dose: 2 mg Oxycodone HCl (Oxycontin(*)) 30 mg PO TID [facility] Last Admin: 06/01/18 13:25 Dose: 30 mg Pharmacy Profile Note (Nicotine Patch Removal Note*) 1 note PATCH OFF 2100 [facility] Last Admin: 05/31/18 20:27 Dose: 1 note Polyethylene Glycol/Electrolytes (Miralax*) 17 gm PO DAILY [facility] Last Admin: 06/01/18 10:50 Dose: 17 gm Prazosin HCl (Minipress Cap*) 2 mg PO BEDTIME [facility] Sertraline HCl (Zoloft*) 50 mg PO BEDTIME [facility] Last Admin: 05/31/18 20:24 Dose: 50 mg Trazodone HCl (Desyrel Tab*) 100 mg PO 2200 [facility] Last Admin: 05/31/18 20:26 Dose: 100 mg - Discharge Plan Additional Comments: Planning for discharge soon, Thereca will continue other medications and today start prazosin 2mg at bedtime.
[2018-06-01] MEDS: clonazePAM TAB(*) 0.5 MG PO PRN (17:45)
[2018-06-01] MEDS: ARIPiprazole TAB* 2 MG PO SCH (20:14)
[2018-06-01] MEDS: ARIPiprazole TAB* 5 MG PO SCH (20:14)
[2018-06-01] MEDS: Sertraline* 50 MG TAB PO SCH (20:15)
[2018-06-01] MEDS: Melatonin 3 MG TAB PO SCH (20:15)
[2018-06-01] MEDS: Nicotine Patch Removal NOTE PATCH OFF SCH (20:17)
[2018-06-01] MEDS: traZODone TAB* 100 MG PO SCH (20:18)
[2018-06-01] MEDS ORDERED: Prazosin CAP* 1 MG PO SCH (21:00)
[2018-06-02 07:57] VITALS: BP 99/60
[2018-06-02] MEDS: Polyethylene Glycol 3350* 17 GM PACKET PO SCH (08:46)
[2018-06-02] MEDS: Vitamin THERAPEUTIC TAB PO SCH (08:47)
[2018-06-02] MEDS: Morphine TAB Extended Release (*) 15 MG TAB.ER PO SCH (08:47)
[2018-06-02] MEDS: Gabapentin CAP(*) 300 MG PO SCH ×2 (08:48→12:07)
[2018-06-02] MEDS: Carisoprodol TAB* 350 MG PO SCH ×2 (08:48→12:02)
[2018-06-02] MEDS: oxyCODONE SR TAB(*) 10 MG TAB.SR PO SCH ×2 (08:49→12:07)
[2018-06-02] MEDS: Nicotine PATCH 21 MG/24 HR* PATCH TRANSDERM SCH (08:50)
[2018-06-02] MEDS: Nicotine GUM* 2 MG PO PRN ×2 (08:51→12:11)
--- NOTE | 2018-06-03 10:20 | DS ---
CC: [facility]; Dr. Alondra Araiza DISCHARGE SUMMARY: DATE OF ADMISSION: 05/27/18. DATE OF DISCHARGE: 06/02/18. SUPERVISING PSYCHIATRIST: Dr. Teo Hall. DISCHARGE DIAGNOSES: Major depressive disorder, tobacco use disorder. CONDITION AT TIME OF DISCHARGE: Improved. The patient denies suicidal ideation. She reports benefiting from intensive psychiatric treatment. She requested a family meeting with her father, and today we met with her father, and per her consent, her friend/previous supervisor accounting clerks, Shaye. We discussed diagnosis of major depressive disorder, treatment thus far, and suggestions for treatment ongoing. The patient and her father noted to have positive interactions. The patient expressed desire for him to understand depressive disorder and he expressed desire to be supportive. We discussed the patient's chronic pain and need for referral to pain specialist. The patient was agreeable to suggestion. We also discussed the importance of continuing therapy to help the patient with interpersonal conflicts and coping skills when she is feeling overwhelmed. The patient denies passive wish. She denies urges for self-harm. She has been calm and in behavioral control while in the hospital. MENTAL STATUS EXAM: Mary is a 42-year-old white female, who appears stated age. She is well-groomed with causal clothing and short dark hair. She is tearful at times, congruent to topic of conversation. She is alert and oriented x3. Speech is soft and articulate. Mood is euthymic with mild anxiety related to discharge. Eye contact is good. Thought content negative for SI, HI or . Thought process is logical and goal-directed. Fund of knowledge is adequate and her level of intelligence appears average as evidenced by vocabulary and academic achievement. Instructions given to the patient by nursing staff. A. Medications: 1. Aripiprazole 10 mg p.o. nightly. 2. Clonazepam 0.5 p.o. at bedtime p.r.n. anxiety. The patient encouraged to use sparingly. 3. Gabapentin 300 mg p.o. 3 times a day. 4. Nicotine gum 2 mg p.o. q.2h. p.r.n. craving. 5. Nicotine patch 21 mg daily at 0800. 6. Prazosin 2 mg p.o. bedtime. 7. Sertraline 50 mg p.o. bedtime. 8. Trazodone 100 mg p.o. bedtime. The above were prescribed to [facility] [address]. Her primary care provider will continue with the following medications, as these were unchanged during her admission to the hospital. 1. Soma 350 mg. 2. Morphine sulfate (MS Contin) 15 mg p.o. b.i.d. 3. OxyContin 30 mg p.o. t.i.d. B. Diet is regular. C. Activity: Ambulation as tolerated. Tobacco cessation was provided to the patient. There are no pending labs or diagnostic studies. D. Followup care: The patient was referred to [facility] and has an intake on 06/05/18 at 9:45 a.m. She is also referred for direct care supervisor through [facility] at [facility]. She will follow up with her primary care provider, Dr. Alondra Araiza on 06/08/18 at 11:30 a.m. and she is encouraged to talk to her about a referral to the pain clinic. E. Substance abuse follow up is not applicable. HOSPITAL COURSE: Part-A: Reason for Admission: The patient presented to the emergency department with reports of severe depression with passive wish and inability to function in least restrictive setting. She reported a decline in functioning over the last 2 months, states she has been increasingly depressed, isolated, lethargic with thoughts of suicide and passive wish. She reports decreased ADLs, decreased appetite with a weight loss of 10 pounds in the last month. She reports anxiety and panic attacks. She states she is afraid of everything including leaving the house. She reported having difficulty maintaining employment due to mood lability. She describes herself as generally very energetic, productive, and talkative, and has depressive episodes that are significant, but rare. Part-B: Psychiatric Treatment Rendered: As stated above, the patient was admitted to [facility] on voluntary status. Code status is full. She was placed on 15-minute checks for safety and this was quickly decreased to q.30 minutes. The patient was safe and in behavioral control. She participated fully in supportive milieu, individual sessions with staff and psychoeducational groups. The patient assented to the following medication changes. We increased gabapentin to 3 times a day. We titrated Abilify to 10 mg at bedtime, added trazodone, melatonin, and prazosin due to the patient's concerns about initiating sleep. We stopped Adderall as the patient had not been taking it. We decreased clonazepam to 0.5 mg at bedtime p.r.n. The patient was given nicotine replacement. The patient tolerated these changes well. She completed an MMPI. Please see report by Dr. Deon Trivedi. The patient was concerned about bipolar disorder. This was not noted at this time. It is likely that a lot of her concerns could be due to possible histrionic personality disorder and/or PTSD. It is too early to tell at this time as we are just seeing Mary for the first time. 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 She was receptive to suggestion to see him after discharge. This insurance underwriter expressed that current opioid pain medications could be contributing to her emotional instability. The patient was safe and in behavioral control. She wanted to continue with hospitalization as she stated anxiety in regards to being discharged. She also expressed desire to have a family meeting with her father to discuss mental health diagnosis and treatment. As stated above, the patient's friend was also present for this meeting, who per patient consent as she is. The patient's friend is a nurse and is helpful in advocating for Mary. On the day of discharge, the patient reported mild anxiety, but overall readiness for discharge. She is encouraged to continue working in therapy in regards to coping skills for interactions with family members and stress at work. She is receptive to therapeutic suggestions. She is receptive to continue utilizing information she has learned on the unit. We think she will be an excellent candidate for therapy, as she has not participated in this before. PAKO ESTRADA, SOTERO [id number]/CPS #: [id number] PATSY
== END 2018-06-02 12:38 | disposition home or self-care (01) | DRG 885 ==
LOC: ED 13:58 → BSU 05-27 01:22
PROVIDERS: ADMIT Psychiatry & Neurology Psychiatry; ATTEND Psychiatry & Neurology Psychiatry
DX: F33.1 Major depressive disorder, recurrent, moderate (principal); R45.851 Suicidal ideations; F17.210 Nicotine dependence, cigarettes, uncomplicated; F43.10 Post-traumatic stress disorder, unspecified; M79.7 Fibromyalgia; M51.17 Intervertebral disc disorders with radiculopathy, lumbosacral region; Z79.891 Long term (current) use of opiate analgesic; Z79.899 Other long term (current) drug therapy; Z88.2 Allergy status to sulfonamides; Z88.8 Allergy status to other drugs, medicaments and biological substances; Z81.8 Family history of other mental and behavioral disorders
CPT/HCPCS: 36415; 80053; 80061; 80307; 80320; 80329; 81003; 82550; 83036; 84443; 84702; 85025; 86703; 93005; 99284; A9270-GY; G0480